=== PATIENT | female | born 1975 | race Caucasian/White ===

== ENCOUNTER 2017-03-13 00:34 | Inpatient (IN) | payer OTHER ==
[~2017-03-13] VITALS: Ht 160 cm; Wt 62.6 kg
--- NOTE | 2017-03-13 00:40 | NUR ---
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 AAOX4, AMBULATORY. VSS. NAD NOTED. NONDIAPHORETIC. GOWNED INITIATED COMFORT MEASURES. AWAITING FOR ER MD LOPEZ.
[2017-03-13] MEDS ORDERED: IV NS 0.9% 1,000 ML BAG IV ONE (02:30)
[2017-03-13] MEDS ORDERED: HYDROMORPHONE 1 MG/1 ML DISP.SYRIN ONE ×3 (02:30→05:40)
[2017-03-13] MEDS ORDERED: HYDROMORPHONE INJ 2 MG/ML DISP.SYRIN IV ONE (02:30)
[2017-03-13] MEDS ORDERED: IV SET PRIMARY 1 EA INFUS.SET MC ONE (02:30)
[2017-03-13] MEDS ORDERED: IV NS 0.9% 1,000 ML ONE (02:30)
[2017-03-13] MEDS ORDERED: ONDANSETRON HCL/PF 4 MG/2 ML VIAL IVP ONE (02:30)
[2017-03-13] MEDS ORDERED: ONDANSETRON HCL/PF 4 MG/2 ML VIAL ONE (02:30)
--- NOTE | 2017-03-13 02:30 | NUR ---
STARTED A SALINE LOCK ON THE LEFT HAND G18, BLOOD DRAWN AND SENT TO LAB.
[2017-03-13 02:45] LABS: BASOPHILS % (AUTO) 0.4 % (0.0-2.0); EOSINOPHILS # (AUTO) 0.2 /CMM (0.0-0.7); EOSINOPHILS % (AUTO) 1.6 % (0.0-6.0); HEMATOCRIT 40 % (33-45); HEMOGLOBIN 13.6 g/dL (11.5-14.8); LYMPHOCYTES # (AUTO) 2.4 /CMM (0.8-4.8); LYMPHOCYTES % (AUTO) 20.5 % (20.0-44.0); MEAN CORPUSCULAR HEMOGLOBIN 30 PG (26.0-33.0); MEAN CORPUSCULAR HGB CONC 34 g/dl (31.0-36.0); MEAN CORPUSCULAR VOLUME 89 fL (82-100); MONOCYTES # (AUTO) 0.7 /CMM (0.1-1.30); MONOCYTES % (AUTO) 5.7 % (2.0-12.0); NEUTROPHILS # (AUTO) 8.3 /CMM (1.8-8.9); NEUTROPHILS % (AUTO) 71.8 % (43.0-81.0); PLATELET COUNT (AUTO) 296 /CMM (150-450); RDW COEFFICIENT OF VARIATION 13.8 (11.5-15.0); RED BLOOD CELL COUNT(AUTO) 4.53 MIL/uL (4.0-5.2); WHITE BLOOD COUNT (AUTO) 11.5 K/uL (4.3-11.0)
[2017-03-13 02:55] LABS: INR 0.9 (0.87-1.13); PROTHROMBIN TIME 9.6 SECS (9.5-12.7)
[2017-03-13 02:59] LABS: CALCIUM, SERUM 9.2 mg/dL (8.5-10.1); CREATININE 0.7 mg/dL (0.6-1.3); POTASSIUM 3.9 mmol/L (3.5-5.1)
[2017-03-13] MEDS ORDERED: FAMOTIDINE/PF INJ 20 MG/2 ML VIAL IV ONE ×2 (03:00→03:05)
[2017-03-13 03:05] LABS: ALBUMIN 3.9 g/dL (3.4-5.0); BILIRUBIN,TOTAL 0.3 mg/dL (0.2-1.0); TOTAL PROTEIN, SERUM 7.1 g/dL (6.4-8.2)
--- NOTE | 2017-03-13 03:58 | NUR ---
CALLED [facility]. [facility].
[2017-03-13] MEDS ORDERED: HYDROMORPHONE 1 MG/1 ML DISP.SYRIN IV ONE (04:00)
--- NOTE | 2017-03-13 04:00 | NUR ---
ADMISSION ORDERS RECEIVED FROM DR. RICHARD
--- NOTE | 2017-03-13 04:19 | NUR ---
ASSIGNED M/S [facility] [phone]
--- NOTE | 2017-03-13 04:31 | NUR ---
REPORT GIVEN TO TIM MAYES FOR [facility] ADMISSION AND BESSY.
[2017-03-13] MEDS ORDERED: QUET25TA PO (04:32)
[2017-03-13] MEDS ORDERED: CITA40TA11 PO (04:32)
[2017-03-13] MEDS ORDERED: GABA600T2 PO (04:32)
--- NOTE | 2017-03-13 04:40 | NUR ---
Transported to [facility], no incident noted. vss.
[2017-03-13 05:00] VITALS: BP 106/61
[2017-03-13] MEDS ORDERED: ONDANSETRON HCL/PF 4 MG/2 ML VIAL IV PRN (05:00)
[2017-03-13] MEDS ORDERED: HYDROMORPHONE 1 MG/1 ML DISP.SYRIN IV PRN (05:00)
--- NOTE | 2017-03-13 05:00 | NUR ---
RN NOTE; ADMITTED A 41Y/O F, A, OX4. BREATHING EVENLY. NO SOB. NAD. W/ ANXIETY AND C/O SEVERE PAIN. DILAUDID HAS BEEN GIVEN AT THE ER AROUND AN HOUR AGO WHICH WAS EXPLAINED TO THE PT. VS:JOHNNIE. NEEDS ATTENDED. CALL LIGHT WITHIN REACH,. WILL CONT TO MONITOR AND WILL F/U W/ MD'S ORDERS.
[2017-03-13] MEDS ORDERED: IV PREMIX D5 NS + KCL 1,000 ML IV ONE (05:06)
[2017-03-13] MEDS ORDERED: IV SET PRIMARY PUMP SET 1 EA INFUS.SET MC ONE (05:08)
--- NOTE | 2017-03-13 05:10 | NUR ---
RN NOTE; RIGHT WRIST W/ INTACT CAST. PT ABLE TO MOVE THE HAND, ARM AND ALL FINGERS. NO NEURO OR CIRCULATORY DEFICIT NOTED. PT W/ NO C/O PAIN ON THE AREA W/ THE CAST.
[2017-03-13] MEDS: Potassium Chloride 20 MEQ in IV D5/ 0.9% NACL 1,000 ML IV PRN ×2 (05:16→16:30)
[2017-03-13] MEDS ORDERED: ACETAMINOPHEN 325 MG TABLET PO PRN (05:30)
[2017-03-13] MEDS ORDERED: ZOLPIDEM TARTRATE 5 MG TABLET PO PRN (05:30)
[2017-03-13] MEDS ORDERED: HYDROCODONE/APAP 5/325MG 1 EACH TABLET PO PRN (05:30)
--- NOTE | 2017-03-13 06:21 | NUR ---
RN NOTE; PT IN BED AWAKE AND ALERT. BREATHING EVENLY. W/ C/O SEVERE ABD PAIN,. DILAUDID GIVEN ORDERED. NEEDS ATTENDED. CALL LIGHT WITHIN REACH. WILL CONT TO MONITOR AND WILL ENDORSE TO AM SHIFT FOR BESSY.
--- NOTE | 2017-03-13 07:15 | NUR ---
ms rn initial notes Received patient in bed, awake, head of bed elevated no sob or distress noted. On room air and tolerated well. NPO due to patient diagnosis. IV intact and patent with IVF infusing well. Right hand cast per patient she broke her hand (not here during hospitalization). Will continue to monitor accordingly. Patient complaint of pain but tolerable pain at this time.
[2017-03-13 07:40] LABS: BASOPHILS # (AUTO) 0.1 /CMM (0.0-0.2); BASOPHILS % (AUTO) 0.5 % (0.0-2.0); EOSINOPHILS # (AUTO) 0.2 /CMM (0.0-0.7); EOSINOPHILS % (AUTO) 2.4 % (0.0-6.0); HEMATOCRIT 37 % (33-45); HEMOGLOBIN 12.4 g/dL (11.5-14.8); LYMPHOCYTES # (AUTO) 2.9 /CMM (0.8-4.8); LYMPHOCYTES % (AUTO) 28.8 % (20.0-44.0); MEAN CORPUSCULAR HEMOGLOBIN 30 PG (26.0-33.0); MEAN CORPUSCULAR HGB CONC 34 g/dl (31.0-36.0); MEAN CORPUSCULAR VOLUME 90 fL (82-100); MONOCYTES # (AUTO) 0.6 /CMM (0.1-1.30); MONOCYTES % (AUTO) 6.5 % (2.0-12.0); NEUTROPHILS # (AUTO) 6.2 /CMM (1.8-8.9); NEUTROPHILS % (AUTO) 61.8 % (43.0-81.0); PLATELET COUNT (AUTO) 260 /CMM (150-450); RDW COEFFICIENT OF VARIATION 14.1 (11.5-15.0); RED BLOOD CELL COUNT(AUTO) 4.09 MIL/uL (4.0-5.2)
[2017-03-13 07:54] LABS: ALBUMIN 3.3 g/dL (3.4-5.0); BILIRUBIN,TOTAL 0.3 mg/dL (0.2-1.0); CALCIUM, SERUM 8.1 mg/dL (8.5-10.1); CREATININE 0.8 mg/dL (0.6-1.3); TOTAL PROTEIN, SERUM 6.1 g/dL (6.4-8.2)
[2017-03-13 08:00] VITALS: BP 94/60
[2017-03-13] MEDS: PANTOPRAZOLE 40 MG VIAL IV SCH (08:44)
[2017-03-13] MEDS: HYDROMORPHONE 1 MG/1 ML DISP.SYRIN IV PRN ×4 (09:18→21:15)
--- NOTE | 2017-03-13 10:16 | NUR ---
ms rn notes Dr. Burroughs came seen and examined the patient and ordered to discontinue previous diet order and change it to clear liquid diet. Urine test for stat. All orders carried out and noted. Will continue to monitor accordingly.
[2017-03-13] MEDS: QUETIAPINE FUMARATE 25 MG TABLET PO SCH ×2 (11:25→17:12)
[2017-03-13] MEDS: GABAPENTIN 300 MG CAPSULE PO SCH ×2 (12:04→16:29)
[2017-03-13 16:00] VITALS: BP 99/52
--- NOTE | 2017-03-13 17:12 | NUR ---
ms rn notes Held Seroquel order due to patient refusal explained the risk and benefits x 3, and still refused to take her medication. Will continue to monitor accordingly.
--- NOTE | 2017-03-13 19:19 | NUR ---
ms rn closing notes All needs provided, attended and anticipated. kept patient clean and comfortable in bed, call light with in patient reach, endorsed to next shift RN to continue care.
--- NOTE | 2017-03-13 19:29 | NUR ---
rn note; RECEIVED PT IN BED SLEEPING, AROUSES EASILY. BREATHING EVENLY. NO SOB. NAD. SKIN WARM AND DRY, ON ONGOING IVF HYDRATION. IV SITE INTACT. NO S/S OR C/O PAIN OR DISCOMFORT. WILL CONT TO MONITOR
[2017-03-13 20:00] VITALS: BP 100/70
--- NOTE | 2017-03-13 21:15 | NUR ---
DILAUDID GIVEN FOR C/O SEVERE ABD. PAIN. WILL CONT TO MONITOR
[2017-03-14] MEDS: HYDROMORPHONE 1 MG/1 ML DISP.SYRIN IV PRN ×4 (02:19→10:52)
[2017-03-14 02:20] VITALS: BP 102/72
[2017-03-14] MEDS: Potassium Chloride 20 MEQ in IV D5/ 0.9% NACL 1,000 ML IV PRN (02:21)
--- NOTE | 2017-03-14 02:23 | NUR ---
DILAUDID GIVEN FOR C/O SEVERE ABD. PAIN. WILL CONT TO MONITOR
--- NOTE | 2017-03-14 05:28 | NUR ---
DILAUDID GIVEN FOR C/O SEVERE ABD. PAIN. WILL CONT TO MONITOR
[2017-03-14 05:31] VITALS: BP 102/67
--- NOTE | 2017-03-14 06:35 | NUR ---
rn note; PT IN BED AWAKE AND ALERT. BREATHING EVENLY. NO SOB/ NAD. PAIN MEDICATION GIVEN ORDERED PER PT'S REQUEST. EFFECTIVE. NO N/V. NO ACUTE CHANGES DURING THE NIGHT. ON ONGOING IVF HYDRATION GRANT WELL. NEEDS ATTENDED. ASSISTED W/ ADLS. CALL LIGHT WITHIN REACH. WILL CONT TO MONITOR AND WILL ENDORSE TO AM SHIFT FOR BESSY,
--- NOTE | 2017-03-14 07:24 | NUR ---
ms rn initial notes Received patient in bed, awake, head of bed elevated, no SOB or distress noted. On room air and tolerated well. Alert and oriented x 3, verbally responsive and able to make needs known. IV intact and patent with IVF infusing well. Pain is on tolerable number at this time. kept patient clean and comfortable in bed, call light with in patient reach, will continue to monitor accordingly.
[2017-03-14 07:37] LABS: BASOPHILS # (AUTO) 0.1 /CMM (0.0-0.2); BASOPHILS % (AUTO) 0.5 % (0.0-2.0); EOSINOPHILS # (AUTO) 0.3 /CMM (0.0-0.7); EOSINOPHILS % (AUTO) 3.1 % (0.0-6.0); HEMATOCRIT 35 % (33-45); HEMOGLOBIN 11.7 g/dL (11.5-14.8); LYMPHOCYTES # (AUTO) 1.9 /CMM (0.8-4.8); LYMPHOCYTES % (AUTO) 18.4 % (20.0-44.0); MEAN CORPUSCULAR HEMOGLOBIN 30 PG (26.0-33.0); MEAN CORPUSCULAR HGB CONC 34 g/dl (31.0-36.0); MEAN CORPUSCULAR VOLUME 91 fL (82-100); MONOCYTES # (AUTO) 0.6 /CMM (0.1-1.30); MONOCYTES % (AUTO) 6.3 % (2.0-12.0); NEUTROPHILS # (AUTO) 7.3 /CMM (1.8-8.9); NEUTROPHILS % (AUTO) 71.7 % (43.0-81.0); PLATELET COUNT (AUTO) 235 /CMM (150-450); RDW COEFFICIENT OF VARIATION 14.3 (11.5-15.0); RED BLOOD CELL COUNT(AUTO) 3.86 MIL/uL (4.0-5.2); WHITE BLOOD COUNT (AUTO) 10.2 K/uL (4.3-11.0)
[2017-03-14 07:53] LABS: ALBUMIN 2.8 g/dL (3.4-5.0); BILIRUBIN,TOTAL 0.3 mg/dL (0.2-1.0); CALCIUM, SERUM 7.9 mg/dL (8.5-10.1); CREATININE 0.6 mg/dL (0.6-1.3); POTASSIUM 4.3 mmol/L (3.5-5.1); TOTAL PROTEIN, SERUM 5.4 g/dL (6.4-8.2)
[2017-03-14 08:00] VITALS: BP 103/71
[2017-03-14] MEDS ORDERED: PANT40TA2 PO (08:53)
[2017-03-14] MEDS ORDERED: HYDR-552 PO (08:53)
[2017-03-14] MEDS: GABAPENTIN 300 MG CAPSULE PO SCH (08:55)
[2017-03-14] MEDS: PANTOPRAZOLE 40 MG VIAL IV SCH (08:55)
[2017-03-14] MEDS ORDERED: CITALOPRAM HYDROBROMIDE 20 MG TABLET PO SCH (09:00)
--- NOTE | 2017-03-14 11:45 | NUR ---
ms returns clerk notes Discharge instructions given to patient and able to understand instructions. Signed discharge paper and belongings list. Prescription given. Skin is intact. Pneumonia vaccine not given due to age. Flu vaccine is out of season. Patient is alert and oriented x 3, verbally responsive. Patient left via ambulatory accompanied by RADIO ENGINEER assigned to the patient. Patient left in stable condition, no pain or discomfort, nor chest pain. IV access removed and applied pressure to prevent bleeding. MD and charge nurse aware. Vital signs checked and recorded.
[2017-03-15] MEDS ORDERED: PANTOPRAZOLE 40 MG TABLET.DR PO SCH (07:30)
== END 2017-03-14 11:45 | disposition home or self-care (01) | DRG 392 ==
LOC: ER 00:39 → MED 04:26
PROVIDERS: ADMIT Internal Medicine; ATTEND Internal Medicine
DX: K29.00 Acute gastritis without bleeding (principal); F41.9 Anxiety disorder, unspecified; R78.89 Finding of other specified substances, not normally found in blood; M25.531 Pain in right wrist
CPT/HCPCS: 36415; 72128-TC; 76705-TC; 80048-TC; 80053-TC; 80061-TC; 80076-TC; 82150-TC; 83690-TC; 84703-TC; 85025-TC; 85730-TC; 87081-TC; A4606; C9113; J1170; J2405; J3480; J3490; J7030; J7042; Z7610

== ENCOUNTER 2017-03-28 22:59 | Emergency (ER) | payer OTHER ==
[~2017-03-28] VITALS: Ht 157.5 cm; Wt 59.0 kg
[~2017-03-28 22:59] MED LIST: CITA40TA11 PO; GABA600T2 PO; HYDR-552 PO; PANT40TA2 PO; QUET25TA PO
--- NOTE | 2017-03-28 23:08 | NUR ---
pt ambulatory w/ steady gait for midepigastric abd pain w/ N/V x yesterday, hx pancreatitis, denies any hematoemesis, no blood in stool, AOx4, afebrile w/ resp even & unlabored, continued nausea w/ midepigastric abd pain w/ no active vomiting at this time. Dr. Lai at bedside for further eval.
[2017-03-28] MEDS ORDERED: ONDANSETRON HCL/PF 4 MG/2 ML VIAL ONE (23:24)
--- NOTE | 2017-03-28 23:24 | NUR ---
IVHL started, labs drawn & sent. medicated as ordered.
[2017-03-28] MEDS ORDERED: MORPHINE SULFATE INJ 4 MG/ML DISP.SYRIN ONE (23:25)
[2017-03-28] MEDS ORDERED: IV NS 0.9% 1,000 ML BAG IV ONE (23:30)
[2017-03-28] MEDS ORDERED: ONDANSETRON HCL/PF 4 MG/2 ML VIAL IVP ONE (23:30)
[2017-03-28] MEDS ORDERED: MORPHINE SULFATE INJ 2 MG/ML DISP.SYRIN IV ONE (23:30)
[2017-03-28 23:31] LABS: BASOPHILS # (AUTO) 0.1 /CMM (0.0-0.2); BASOPHILS % (AUTO) 0.7 % (0.0-2.0); EOSINOPHILS # (AUTO) 0.1 /CMM (0.0-0.7); EOSINOPHILS % (AUTO) 1.4 % (0.0-6.0); HEMATOCRIT 38 % (33-45); HEMOGLOBIN 12.6 g/dL (11.5-14.8); LYMPHOCYTES # (AUTO) 2.1 /CMM (0.8-4.8); LYMPHOCYTES % (AUTO) 27.8 % (20.0-44.0); MEAN CORPUSCULAR HEMOGLOBIN 30 PG (26.0-33.0); MEAN CORPUSCULAR HGB CONC 33 g/dl (31.0-36.0); MEAN CORPUSCULAR VOLUME 90 fL (82-100); MONOCYTES # (AUTO) 0.5 /CMM (0.1-1.30); MONOCYTES % (AUTO) 7.1 % (2.0-12.0); NEUTROPHILS # (AUTO) 4.8 /CMM (1.8-8.9); PLATELET COUNT (AUTO) 285 /CMM (150-450); RDW COEFFICIENT OF VARIATION 13.4 (11.5-15.0); RED BLOOD CELL COUNT(AUTO) 4.25 MIL/uL (4.0-5.2); WHITE BLOOD COUNT (AUTO) 7.7 K/uL (4.3-11.0)
[2017-03-28 23:39] LABS: APPEARANCE,URINE SL CLOUDY (CLEAR); BILIRUBIN,URINE NEGATIVE (NEGATIVE); BLOOD, URINE 1+ Ery/uL (NEGATIVE); COLOR,URINE YELLOW (YELLOW); KETONES,URINE NEGATIVE (NEGATIVE); LEUKOCYTE ESTERASE ,URINE NEGATIVE (NEGATIVE); NITRITE, URINE NEGATIVE (NEGATIVE); PROTEIN,URINE NEGATIVE (NEGATIVE); UGLUCOSE NEGATIVE (NEGATIVE); UROBILINOGEN,URINE 0.2 EU/dL (0.2)
[2017-03-28 23:40] LABS: CALCIUM, SERUM 8.6 mg/dL (8.5-10.1); CREATININE 0.8 mg/dL (0.6-1.3); POTASSIUM 4.1 mmol/L (3.5-5.1)
[2017-03-28 23:41] LABS: PREGNANCY TEST URINE QUAL NEGATIVE (NEGATIVE)
[2017-03-28 23:43] LABS: BACTERIA,URINE None seen /HPF (None Seen); SQUAMOUS EPITHELIAL CELL,UR Few /HPF (None Seen); URINE AMORPHOUS URATE Few /HPF (None Seen); WBC,URINE 0-2 /HPF (0-3)
[2017-03-28 23:46] LABS: ALBUMIN 3.5 g/dL (3.4-5.0); BILIRUBIN,TOTAL 0.3 mg/dL (0.2-1.0); TOTAL PROTEIN, SERUM 6.5 g/dL (6.4-8.2)
--- NOTE | 2017-03-28 23:48 | NUR ---
pt sent to [place] via [facility].
--- NOTE | 2017-03-29 00:05 | NUR ---
pt back fr CT, continues to have midepigastric abd pain w/ no active N/V, requesting for pain medication. Dr. Lai notified. pt on continuous monitoring.
--- NOTE | 2017-03-29 00:52 | NUR ---
Dr. Lai at bedside for update on pt status.
--- NOTE | 2017-03-29 00:58 | NUR ---
IV removed. Catheter intact and site benign. Pressure and 4x4 applied to site. No bleeding noted.Patient discharged to home in stable condition. Written and verbal after care instructions given. Patient verbalizes understanding of instruction.
[2017-03-29 01:00] VITALS: BP 107/66
== END 2017-03-29 01:09 | disposition home or self-care (01) ==
LOC: ER 22:59
DX: R10.12 Left upper quadrant pain (principal); R10.11 Right upper quadrant pain
CPT/HCPCS: 36415; 72128; 74176; 80048; 80076; 81001; 83690; 84703; 85025; 96361; 96374; 96375; 99285; A4606 ×2; J2270; J2405; J7030; Z7610 ×2; 81000-TC

== ENCOUNTER 2017-07-02 21:24 | Emergency (ER) | payer MEDICAID, OTHER ==
[~2017-07-02] VITALS: Ht 154.9 cm; Wt 56.7 kg
--- NOTE | 2017-07-02 22:00 | NUR ---
PT BIB SELF, AMBULATORY TO ER BED 4. PT C/O MID ABD PAIN X 2 DAYS, STATES ITS A SHARP PAIN. PT PLACED IN GOWN. AWAITING MD LOPEZ. VSS/RESP EVEN AND UNLABORED/NAD NOTED/PT C/O MILD NAUSEA, DENIES V/D. SKIN WARM AND DRY.
[2017-07-02] MEDS ORDERED: ONDANSETRON HCL/PF 4 MG/2 ML VIAL IVP ONE (23:30)
[2017-07-02] MEDS ORDERED: FAMOTIDINE/PF INJ 20 MG/2 ML VIAL IV ONE ×2 (23:30→23:32)
[2017-07-02] MEDS ORDERED: MORPHINE SULFATE INJ 2 MG/ML DISP.SYRIN IV ONE (23:30)
--- NOTE | 2017-07-02 23:30 | NUR ---
18G IV TO LAC USING ASEPTIC TECH, FLUSHES EASILY. BLOOD SAMPLE HANDED OVER TO LAB AT BEDSIDE. PT TOLERATED PROCEDURE WELL.
[2017-07-02] MEDS ORDERED: ONDANSETRON HCL/PF 4 MG/2 ML VIAL ONE (23:31)
[2017-07-02] MEDS ORDERED: MORPHINE SULFATE INJ 10 MG/ML DISP.SYRIN ONE (23:31)
[2017-07-02 23:34] LABS: BASOPHILS # (AUTO) 0.1 /CMM (0.0-0.2); BASOPHILS % (AUTO) 0.6 % (0.0-2.0); EOSINOPHILS # (AUTO) 0.3 /CMM (0.0-0.7); EOSINOPHILS % (AUTO) 3.3 % (0.0-6.0); HEMATOCRIT 39 % (33-45); HEMOGLOBIN 12.9 g/dL (11.5-14.8); LYMPHOCYTES # (AUTO) 1.6 /CMM (0.8-4.8); LYMPHOCYTES % (AUTO) 16.2 % (20.0-44.0); MEAN CORPUSCULAR HEMOGLOBIN 29 PG (26.0-33.0); MEAN CORPUSCULAR HGB CONC 33 g/dl (31.0-36.0); MEAN CORPUSCULAR VOLUME 88 fL (82-100); MONOCYTES # (AUTO) 0.7 /CMM (0.1-1.30); MONOCYTES % (AUTO) 7.2 % (2.0-12.0); NEUTROPHILS # (AUTO) 7.1 /CMM (1.8-8.9); NEUTROPHILS % (AUTO) 72.7 % (43.0-81.0); PLATELET COUNT (AUTO) 242 /CMM (150-450); RDW COEFFICIENT OF VARIATION 13.4 (11.5-15.0); RED BLOOD CELL COUNT(AUTO) 4.46 MIL/uL (4.0-5.2); WHITE BLOOD COUNT (AUTO) 9.8 K/uL (4.3-11.0)
[2017-07-02 23:39] LABS: APPEARANCE,URINE SL CLOUDY (CLEAR); BILIRUBIN,URINE NEGATIVE (NEGATIVE); BLOOD, URINE 1+ Ery/uL (NEGATIVE); COLOR,URINE YELLOW (YELLOW); KETONES,URINE NEGATIVE (NEGATIVE); LEUKOCYTE ESTERASE ,URINE NEGATIVE (NEGATIVE); NITRITE, URINE NEGATIVE (NEGATIVE); PH,URINE 5.5 (5.0-8.0); PROTEIN,URINE NEGATIVE (NEGATIVE); UGLUCOSE NEGATIVE (NEGATIVE); UROBILINOGEN,URINE 0.2 EU/dL (0.2)
[2017-07-02 23:44] LABS: BACTERIA,URINE Few /HPF (None Seen); SQUAMOUS EPITHELIAL CELL,UR Moderate /HPF (None Seen)
[2017-07-02 23:48] LABS: INR 0.87 (0.87-1.13)
[2017-07-02 23:50] LABS: CALCIUM, SERUM 8.9 mg/dL (8.5-10.1); CARBON DIOXIDE 31 mmol/L (21-32); CHLORIDE 107 mmol/L (98-107); CREATININE 0.7 mg/dL (0.6-1.3); GLUCOSE 83 mg/dL (74-106); POTASSIUM 4.4 mmol/L (3.5-5.1); SODIUM SERUM 140 mmol/L (136-145); UREA NITROGEN, BLOOD 14 mg/dL (7-18)
[2017-07-02 23:53] LABS: TROPONIN I < 0.017 ng/mL (0.00-0.056)
[2017-07-02 23:56] LABS: ALANINE AMINOTRANSFERASE 27 U/L (12-78); ALBUMIN 3.5 g/dL (3.4-5.0); ALKALINE PHOSPHATASE 56 U/L (46-116); ASPARTATE AMINOTRANSFERASE 14 U/L (15-37); BILIRUBIN,TOTAL 0.2 mg/dL (0.2-1.0); LIPASE 229 U/L (73-393); TOTAL PROTEIN, SERUM 6.6 g/dL (6.4-8.2)
[2017-07-03] MEDS ORDERED: LIDOCAINE VISCOUS 2% UD 15 ML UDC ONE (00:21)
[2017-07-03] MEDS ORDERED: MAG HYDROX/AL HYDROX/SIMETH 30 ML UDC ONE (00:22)
--- NOTE | 2017-07-03 00:25 | NUR ---
MEDICATED PER MD ORDERS.
[2017-07-03] MEDS ORDERED: MAG HYDROX/AL HYDROX/SIMETH 30 ML UDC PO ONE (00:30)
[2017-07-03] MEDS ORDERED: LIDOCAINE VISCOUS 2% UD 15 ML UDC MM ONE (00:30)
--- NOTE | 2017-07-03 00:39 | NUR ---
IV removed. Catheter intact and site benign. Pressure and 4x4 applied to site. No bleeding noted. Patient discharged to home in stable condition. Written and verbal after care instructions given. Patient verbalizes understanding of instruction, pt instructed not to drive. Pt ambulatory with a steady gait.
[2017-07-03 00:41] VITALS: BP 117/71
== END 2017-07-03 00:43 | disposition home or self-care (01) ==
LOC: ER 21:26
DX: I88.9 Nonspecific lymphadenitis, unspecified (principal); Z88.2 Allergy status to sulfonamides; Z88.8 Allergy status to other drugs, medicaments and biological substances
CPT/HCPCS: 36415; 74176; 80048; 80076; 81001; 83690; 84484; 84703; 85025; 85730; 93005; 96374; 96375; 99285; A4606; J2270; J2405; J3490; Z7610; 81000-TC

== ENCOUNTER 2018-01-16 12:44 | Emergency (ER) | payer MEDICAID, OTHER ==
[~2018-01-16] VITALS: Ht 157.5 cm; Wt 63.5 kg
[2018-01-16 12:50] VITALS: BP 113/80
[2018-01-16] MEDS ORDERED: KETOROLAC TROMETHAMINE 15 MG/ML VIAL ONE (13:00)
[2018-01-16] MEDS: KETOROLAC TROMETHAMINE INJ 60 MG/2 ML VIAL IM ONE (13:05)
== END 2018-01-16 13:46 | disposition home or self-care (01) ==
LOC: ER 12:45
DX: S63.501A Unspecified sprain of right wrist, initial encounter (principal); K85.90 Acute pancreatitis without necrosis or infection, unspecified; Z88.2 Allergy status to sulfonamides; Z88.8 Allergy status to other drugs, medicaments and biological substances; W01.0XXA Fall on same level from slipping, tripping and stumbling without subsequent striking against object, initial encounter; Y93.K1 Activity, walking an animal; Y92.89 Other specified places as the place of occurrence of the external cause; Y99.8 Other external cause status
CPT/HCPCS: 73110; A4606; J1885; Z7610

== ENCOUNTER 2018-03-02 18:10 | Inpatient (IN) | payer MEDICAID ==
[~2018-03-02] VITALS: Ht 157.5 cm; Wt 79.4 kg
--- NOTE | 2018-03-02 18:12 | NUR ---
PT A/OX4 C/C SEVERE ABD PAIN, STATINGE SHE ACCIDENTALLY SWALLOWED 2 SMALL MAGNETS ON 02/21/18. HEMOPTYSIS X 1 WOUND CARE NURSE. NEG ACUTE DISTRESS. VSS. STABLE CONDITION. NEG SOB. SAFETY MEASURES IN PLACE. AWAITING MD LOPEZ.
[2018-03-02] MEDS ORDERED: MORPHINE SULFATE INJ 2 MG/ML DISP.SYRIN IV ONE ×2 (18:30→20:30)
[2018-03-02] MEDS ORDERED: IV NS 0.9% 1,000 ML BAG IV ONE (18:30)
[2018-03-02] MEDS ORDERED: ONDANSETRON HCL/PF 4 MG/2 ML VIAL IVP ONE (18:30)
[2018-03-02 18:42] LABS: BASOPHILS % (AUTO) 0.4 % (0.0-2.0); EOSINOPHILS % (AUTO) 1.6 % (0.0-6.0); HEMATOCRIT 35 % (33-45); HEMOGLOBIN 11.8 g/dL (11.5-14.8); LYMPHOCYTES # (AUTO) 1.1 /CMM (0.8-4.8); LYMPHOCYTES % (AUTO) 11.4 % (20.0-44.0); MEAN CORPUSCULAR HEMOGLOBIN 30 PG (26.0-33.0); MEAN CORPUSCULAR HGB CONC 34 g/dl (31.0-36.0); MEAN CORPUSCULAR VOLUME 90 fL (82-100); MONOCYTES # (AUTO) 0.6 /CMM (0.1-1.30); MONOCYTES % (AUTO) 6.6 % (2.0-12.0); NEUTROPHILS # (AUTO) 7.5 /CMM (1.8-8.9); PLATELET COUNT (AUTO) 262 /CMM (150-450); RDW COEFFICIENT OF VARIATION 14.1 (11.5-15.0); RED BLOOD CELL COUNT(AUTO) 3.88 MIL/uL (4.0-5.2); WHITE BLOOD COUNT (AUTO) 9.4 K/uL (4.3-11.0)
[2018-03-02] MEDS ORDERED: ONDANSETRON HCL/PF 4 MG/2 ML VIAL ONE (18:54)
[2018-03-02] MEDS ORDERED: MORPHINE SULFATE INJ 4 MG/ML DISP.SYRIN ONE ×2 (18:55→20:36)
[2018-03-02 18:57] LABS: CALCIUM, SERUM 8.9 mg/dL (8.5-10.1); CARBON DIOXIDE 28 mmol/L (21-32); CHLORIDE 105 mmol/L (98-107); CREATININE 0.9 mg/dL (0.6-1.3); GLUCOSE 109 mg/dL (74-106); POTASSIUM 3.7 mmol/L (3.5-5.1); SODIUM SERUM 140 mmol/L (136-145); UREA NITROGEN, BLOOD 5 mg/dL (7-18)
[2018-03-02 19:03] LABS: TROPONIN I < 0.017 ng/mL (0.00-0.056)
[2018-03-02 19:07] LABS: ALANINE AMINOTRANSFERASE 29 U/L (12-78); ALBUMIN 3.4 g/dL (3.4-5.0); ALKALINE PHOSPHATASE 63 U/L (46-116); ASPARTATE AMINOTRANSFERASE 14 U/L (15-37); BILIRUBIN,DIRECT 0.1 mg/dL (0.0-0.2); BILIRUBIN,TOTAL 0.4 mg/dL (0.2-1.0); LIPASE 103 U/L (73-393); TOTAL PROTEIN, SERUM 6.8 g/dL (6.4-8.2)
[2018-03-02 19:12] LABS: INR 0.88 (0.85-1.15)
--- NOTE | 2018-03-02 20:13 | NUR ---
CALLED LANI SCHWARTZ, ON THE PHONE WITH DR BONNER.
--- NOTE | 2018-03-02 20:20 | NUR ---
CALLED DR RICHARD ON THE PHONE WITH DR BONNER.
[2018-03-02 20:30] LABS: APPEARANCE,URINE SL CLOUDY (CLEAR); BILIRUBIN,URINE NEGATIVE (NEGATIVE); BLOOD, URINE NEGATIVE Ery/uL (NEGATIVE); COLOR,URINE YELLOW (YELLOW); KETONES,URINE NEGATIVE (NEGATIVE); LEUKOCYTE ESTERASE ,URINE NEGATIVE (NEGATIVE); NITRITE, URINE NEGATIVE (NEGATIVE); PH,URINE 6.5 (5.0-8.0); PROTEIN,URINE NEGATIVE (NEGATIVE); UGLUCOSE NEGATIVE (NEGATIVE); UROBILINOGEN,URINE 0.2 EU/dL (0.2)
[2018-03-02] MEDS ORDERED: PEG 3350/NA SULF,BICARB,CL/KCL 4,000 ML BOTTLE PO ONE (20:30)
--- NOTE | 2018-03-02 21:02 | NUR ---
MATEO PINEDA ADMIN X1. REMAINING DOSE ENDORSED TO SUGEY MARINO RN. OK BY .
--- NOTE | 2018-03-02 21:25 | NUR ---
NICKO ARRIVED ON FLOOR FROM ER CC OF ABD PAIN FROM ACCIDENTALLY SWALLOWING 2 BATTERIES. PLACED TO BED COMFORTABLY, V/S STABLE, NO SOB. STATED HAD MORPHINE IN ER WITH LITTLE RELIEF. REQUESTING TO HAVE PAIN MED CHANGED. ORIENTED TO ROOM FACILITIES, UNDERSTANDS PLAN OF CARE AND MEDICATION REGIMEN. STATED FELL WEEKS AGO TRIPPED FROM HER DOG LEASH, NO OPEN WOUND, HEALING BRUISE ON LEFT ARM. PROVIDED BSC, PATIENT CAME WITH GOLYTELY FROM ER. PATIENT INSTRUCTED TO DRINK MUCH SHE CAN TOLERATE, EXPLAINED PURPOSE OF TAKING GOLYTELY, APPEARS TO UNDERSTAND. INSTRUCTED TO CALL STAFF EVERYTIME SHE USE COMMODE. VERY PLEASANT, GETTING ANXIOUS AT TIMES. TO CONTINUE
[2018-03-02 21:30] VITALS: BP 115/73
[2018-03-02] MEDS ORDERED: HYDROMORPHONE 1 MG/1 ML DISP.SYRIN IV PRN (22:30)
[2018-03-02] MEDS ORDERED: ONDANSETRON HCL/PF 4 MG/2 ML VIAL IV PRN (22:30)
[2018-03-02 22:47] VITALS: BP 115/73
[2018-03-02] MEDS: PANTOPRAZOLE 40 MG VIAL IV SCH (23:10)
[2018-03-02] MEDS ORDERED: IV PREMIX NS +20MEQ KCL 1 L IV ONE (23:30)
--- NOTE | 2018-03-02 23:30 | NUR ---
MSRN STARTED ON IVF WITH KCL AT 100CC/HR VIA RIGHT AC INFUSING WELL.KEPT NPO EXCEPT MEDS. TELEPHONE ORDRS OBTAINED AT [address] RICHARD CARRIED OUT. AABD PAIN ON/OFF. HAD LOOSE BM WITH SOME STOOL PARTICLES, NO BATTERIES SEEN. PATIENT INSTRUCTED TO CALL STAFF FOR ANY ASSISTANCE/ FURTHER DISCOMFORTS CALL LIGHT WITHIN REACH. SAFETY PRECAUTIONS EMPHASIZED, WELL UNDERSTOOD.
[2018-03-03] MEDS ORDERED: Potassium Chloride 20 MEQ in IV NS 0.9% 1,000 ML IV ONE ×2
--- NOTE | 2018-03-03 | NUR ---
MSRN NS WITH 20MEQ KCL X 1L ADMINISTERED AT 100CC/HR. D5NS WITH 20 MEQ KCL NOT AVAILABLE AT [facility] PER BUYER PLANNER. WILL FOLLOW UP IN AM.
[2018-03-03] MEDS: Potassium Chloride 20 MEQ in IV D5/ 0.9% NACL 1,000 ML IV PRN ×3 (00:01→20:43)
[2018-03-03] MEDS: HYDROMORPHONE INJ 2 MG/ML DISP.SYRIN IV PRN ×4 (01:12→13:13)
--- NOTE | 2018-03-03 01:17 | NUR ---
MSRN VERBALIZES WORSENING ABD PAIN DILAUDED 1MG IVP ADMNISTERED ORDERED. BEDREST INSTRUCTED.
--- NOTE | 2018-03-03 04:45 | NUR ---
MSRN AWAKENED WITH SHARP BURNING ABD PAIN, DIL 1MG IVP ADMINISTERED. WANTED COFFEE, REMINDED NOT ALLOWED TO HAVE ANYTHING BY MOUTH EXCEPT MEDS. ENCOURAGED TO DRINK MORE GOLETLY , AGREES. NO N/V.
[2018-03-03 06:22] LABS: BASOPHILS % (AUTO) 0.6 % (0.0-2.0); EOSINOPHILS % (AUTO) 4.2 % (0.0-6.0); HEMATOCRIT 32 % (33-45); HEMOGLOBIN 10.4 g/dL (11.5-14.8); LYMPHOCYTES # (AUTO) 1.6 /CMM (0.8-4.8); LYMPHOCYTES % (AUTO) 26.2 % (20.0-44.0); MEAN CORPUSCULAR HEMOGLOBIN 30 PG (26.0-33.0); MEAN CORPUSCULAR HGB CONC 33 g/dl (31.0-36.0); MEAN CORPUSCULAR VOLUME 93 fL (82-100); MONOCYTES # (AUTO) 0.6 /CMM (0.1-1.30); MONOCYTES % (AUTO) 8.9 % (2.0-12.0); NEUTROPHILS # (AUTO) 3.8 /CMM (1.8-8.9); NEUTROPHILS % (AUTO) 60.1 % (43.0-81.0); PLATELET COUNT (AUTO) 224 /CMM (150-450); RDW COEFFICIENT OF VARIATION 14.8 (11.5-15.0); RED BLOOD CELL COUNT(AUTO) 3.43 MIL/uL (4.0-5.2); WHITE BLOOD COUNT (AUTO) 6.3 K/uL (4.3-11.0)
[2018-03-03 06:26] LABS: CALCIUM, SERUM 8.1 mg/dL (8.5-10.1); CREATININE 0.8 mg/dL (0.6-1.3); POTASSIUM 4.3 mmol/L (3.5-5.1)
--- NOTE | 2018-03-03 06:42 | NUR ---
MSRN ASLEEP, APPEARS COMFORTABLE
[2018-03-03 08:00] VITALS: BP 109/70
[2018-03-03] MEDS ORDERED: PANT40TA2 PO (08:06)
[2018-03-03] MEDS: GABAPENTIN 300 MG CAPSULE PO SCH ×3 (08:29→18:00)
[2018-03-03] MEDS: CITALOPRAM HYDROBROMIDE 20 MG TABLET PO SCH (08:29)
--- NOTE | 2018-03-03 12:40 | NUR ---
MS RN NOTES Seen and evaluated by Dr Burroughs with new orders made. Noted and carried out.
--- NOTE | 2018-03-03 14:57 | NUR ---
MS RN NOTES SEEN AND EVALUATED BY DR REYNA WITH NEW ORDERS FOR KUB IN AM 03/04/18, CONTINUE FULL LIQUID DIET, FOR SURGERY CONSULT. NOTED AND CARRIED OUT.
[2018-03-03 16:00] VITALS: BP 100/68
--- NOTE | 2018-03-03 19:00 | NUR ---
RN CLOSING NOTES PATIENT IN BED, ALERT AND ORIENTED X 4, NO ACUTE DISTRESS NOTED. BREATHING UNLABORED. NO SOB NOTED, IV ACCESS INTACT AND PATENT. NEEDS ATTENDED AND ANTICIPATED. DUE MEDICATIONS GIVEN NO ASE NOTED. CALL LIGHT PLACED WITHIN REACH.SAFETY MEASURES IN PLACE. BED PLACED IN LOW POSITION AND LOCKED IN PLACE. ENDORSED TO NIGHT NURSE FOR CONTINUITY OF CARE.
[2018-03-03] MEDS: ACETAMINOPHEN 325 MG TABLET PO PRN (19:10)
--- NOTE | 2018-03-03 19:30 | NUR ---
MS BARRETT INITIAL NOTES RECEIVED REPORT FROM AM NURSE WHILE CHECKING THE PATIENT. SHE'S RESTING AT THIS TIME WITH EYES CLOSED. RESPIRATION EVEN AND NON-LABORED, NOT IN ANY ACUTE DISCOMFORT. IVF OF [id number] 20MEQ KCL INFUSING AT THIS TIME AT 100 ML/HR. KEPT HER WARM AND COMFORTABLE AT ALL TIMES. PLACE CALL LIGHT AT REACH.
[2018-03-03 20:00] VITALS: BP 98/68
[2018-03-03] MEDS: PANTOPRAZOLE 40 MG VIAL IV SCH (22:56)
[2018-03-03] MEDS: QUETIAPINE FUMARATE 25 MG TABLET PO SCH (22:56)
--- NOTE | 2018-03-04 | NUR ---
MS BARRETT NOTES PT SLEEPING COMFORTABLY IN BED WITHOUT ANY DISCOMFORT. KEPT HER WARM AND COMFORTABLE AT ALL TIMES. PLACE CALL LIGHT AT REACH. WILL CONTINUE TO MONITOR. IVF STILL INFUSING.
--- NOTE | 2018-03-04 07:00 | NUR ---
RN OPENING NOTES PATIENT IN BED EYES CLOSED, AROUSABLE, ALERT ORIENTED X4. HOB ELEVATED. NO ACUTE DISTRESS NOTED. BREATHING UNLABORED. NO SOB NOTED. IV ACCESS INTACT AND PATENT. CALL LIGHT PLACED WITHIN REACH.SAFETY MEASURES IN PLACE. BED PLACED IN LOW POSITION AND LOCKED IN PLACE. WILL CONTINUE TO MONITOR ACCORDINGLY.
--- NOTE | 2018-03-04 07:30 | NUR ---
MS CADDIE SUPERVISOR CLOSING NOTES PT RESTING COMFORTABLY IN BED WITHOUT ANY ACUTE DISTRESS NOTED. IVF STILL INFUSING. STABLE NAHED THE NIGHT AND SLEPT WELL. NO SIGNS OF ANY DISCOMFORT NAHED THE NIGHT. KEPT HER WARM AND COMFORTABLE AT ALL TIMES. REFUSED TO HAVE HER BEDDING CHANGED PER INTERNET MARKETING ASSISTANT . ENDORSE TO AM NURSE FOR CONTINUITY OF CARE.
[2018-03-04 08:00] VITALS: BP 113/70
[2018-03-04] MEDS: ACETAMINOPHEN 325 MG TABLET PO PRN (08:27)
[2018-03-04] MEDS: CITALOPRAM HYDROBROMIDE 20 MG TABLET PO SCH (08:29)
[2018-03-04] MEDS: GABAPENTIN 300 MG CAPSULE PO SCH ×3 (08:29→17:21)
[2018-03-04] MEDS ORDERED: PEG 3350/NA SULF,BICARB,CL/KCL 4,000 ML BOTTLE PO ONE (11:00)
--- NOTE | 2018-03-04 14:00 | NUR ---
MS RN NOTES SEEN AND EVALUATED BY DR RICHARD WITH NEW ORDERS MADE, CLARIFIED IVF ORDER, WITH ORDER TO DC. NOTED AND CARRIED OUT.
--- NOTE | 2018-03-04 14:22 | NUR ---
MS RN NOTES SEEN AND EVALUATED BY KENAN GOMEZ WITH NEW ORDERS MADE. NOTED AND CARRIED OUT.
[2018-03-04 16:00] VITALS: BP 108/67
[2018-03-04] MEDS ORDERED: QUETIAPINE FUMARATE 25 MG TABLET PO PRN (18:00)
--- NOTE | 2018-03-04 19:00 | NUR ---
RN CLOSING NOTES PATIENT IN BED ALERT ORIENTED X4. HOB ELEVATED. NO ACUTE DISTRESS NOTED. BREATHING UNLABORED. NO SOB NOTED. IV ACCESS INTACT AND PATENT. DUE MEDICATIONS GIVEN, NO ASE NOTED. NEEDS ATTENDED AND ANTICIPATED. CALL LIGHT PLACED WITHIN REACH.SAFETY MEASURES IN PLACE. BED PLACED IN LOW POSITION AND LOCKED IN PLACE. ENDORSED TO NIGHT NURSE FOR CONTINUITY OF CARE.
--- NOTE | 2018-03-04 19:30 | NUR ---
MS RN OPENING NOTES RECEIVED PATIENT IN BED, ALERT ORIENTED X 4. HOB ELEVATED. NO ACUTE DISTRESS NOTED. BREATHING UNLABORED. NO SOB NOTED. NO C/O PAIN VEBALIZED @ THIS TIME. IV ACCESS INTACT AND PATENT TO RAC. CALL LIGHT PLACED WITHIN REACH. SAFETY MEASURES IN PLACE. BED PLACED IN LOW POSITION AND LOCKED IN PLACE. WILL CONTINUE TO MONITOR ACCORDINGLY.
[2018-03-04 20:00] VITALS: BP 154/72
[2018-03-04] MEDS: QUETIAPINE FUMARATE 25 MG TABLET PO SCH (21:04)
[2018-03-04] MEDS: PANTOPRAZOLE 40 MG VIAL IV SCH (21:56)
--- NOTE | 2018-03-05 00:45 | NUR ---
MS RN NOTE PT HAD C/O ITCHINESS TO CHEST AREA ONLY, LOTION APPLIED & WAS EFFECTIVE. PT WENT TO SLEEP COMFORTABLY AFTER THAT. MONITORING CLOSELY.
[2018-03-05 07:18] LABS: BASOPHILS % (AUTO) 0.7 % (0.0-2.0); EOSINOPHILS % (AUTO) 4.2 % (0.0-6.0); HEMATOCRIT 35 % (33-45); HEMOGLOBIN 12.1 g/dL (11.5-14.8); LYMPHOCYTES # (AUTO) 1.5 /CMM (0.8-4.8); LYMPHOCYTES % (AUTO) 26.4 % (20.0-44.0); MEAN CORPUSCULAR HEMOGLOBIN 31 PG (26.0-33.0); MEAN CORPUSCULAR HGB CONC 34 g/dl (31.0-36.0); MEAN CORPUSCULAR VOLUME 90 fL (82-100); MONOCYTES # (AUTO) 0.5 /CMM (0.1-1.30); MONOCYTES % (AUTO) 8.5 % (2.0-12.0); NEUTROPHILS # (AUTO) 3.6 /CMM (1.8-8.9); NEUTROPHILS % (AUTO) 60.2 % (43.0-81.0); PLATELET COUNT (AUTO) 250 /CMM (150-450); RDW COEFFICIENT OF VARIATION 13.9 (11.5-15.0); RED BLOOD CELL COUNT(AUTO) 3.93 MIL/uL (4.0-5.2); WHITE BLOOD COUNT (AUTO) 5.8 K/uL (4.3-11.0)
--- NOTE | 2018-03-05 07:24 | NUR ---
MS RN CLOSING NOTES PATIENT SLEPT INTERMITTENTLY @ NIGHT, NOW IN BED ALERT ORIENTED X 4. HOB ELEVATED. NO ACUTE DISTRESS NOTED. BREATHING UNLABORED. NO SOB NOTED. IV ACCESS INTACT AND PATENT. DUE MEDICATIONS GIVEN, NO ASE NOTED. NEEDS ATTENDED AND ANTICIPATED. NPO FOR SCHEDULED COLONOSCOPY @ 1130AM. CONSENT SIGNED. CALL LIGHT PLACED WITHIN REACH. SAFETY MEASURES IN PLACE. BED PLACED IN LOW POSITION AND LOCKED IN PLACE. ENDORSED TO NIGHT NURSE FOR CONTINUITY OF CARE.
[2018-03-05 07:31] LABS: CALCIUM, SERUM 8.9 mg/dL (8.5-10.1); CREATININE 0.8 mg/dL (0.6-1.3); POTASSIUM 3.6 mmol/L (3.5-5.1)
[2018-03-05 08:00] VITALS: BP 122/73
--- NOTE | 2018-03-05 08:00 | NUR ---
RN NOTES RECEIVED PATIENT IN THE ROOM , A/O X4, NO ACUTE RESPIRATORY DISTRESS, PATIENT NPO GOING TO HAVE A COLONOSCOPY TODAY. SCHEDULED MEDICATION ADMINISTERED. PATIENT COMPLAINING OF PAIN 5/10 IN ABDOMEN BUT REFUSED PAIN MEDICATION. CALL LIGHT WITHIN TO REACH. CONTINUED MONITORING.
[2018-03-05] MEDS: GABAPENTIN 300 MG CAPSULE PO SCH ×3 (09:21→17:28)
[2018-03-05] MEDS: CITALOPRAM HYDROBROMIDE 20 MG TABLET PO SCH (09:22)
--- NOTE | 2018-03-05 10:30 | NUR ---
RN NOTES SEE PATIENT BY DR BURCH. WROTE PRESCRIPTION. PATIENT WILL FOLLOW PRIMARY PSYCHIATRIST AFTER DISCHARGE HOME AND TAKE MEDICATION PRESCRIBED.
--- NOTE | 2018-03-05 13:21 | NUR ---
RN NOTES PATIENT LEARNING AND DEVELOPMENT MANAGER FOR COLONOSCOPE AT THIS TIME. V/S STABLE.
--- NOTE | 2018-03-05 14:15 | NUR ---
RN NOTES PATIENT BACK FROM PROCEDURE. A/O X4, NO ACUTE RESPIRATORY DISTRESS, NO COMPLAINING OF PAIN AT THIS TIME, PATIENT DENIED NAUSEA AND VOMITING. CALL LIGHT WITHIN TO REACH CONTINUED MONITORING.
--- NOTE | 2018-03-05 15:00 | NUR ---
RN NOTES PATIENT ON ADVANCE DIET. PATIENT GAG REFLEX RETURNED GIVEN CLEAR LIQUID TOLERATED PATIENT TOLERATED WELL.
[2018-03-05 16:00] VITALS: BP 116/80
--- NOTE | 2018-03-05 18:00 | NUR ---
RN NOTES CALLED DR RICHARD AND CONFIRM DISCHARGE ORDER. PATIENT WILL DISCHARGE HOME.
--- NOTE | 2018-03-05 19:45 | NUR ---
RN NOTES PATIENT LEFT UNIT WITHOUT REMOVAL OF HEP LOCK, AND WITHOUT PAPERWORK. CHARGE NURSE NOTIFIED [employer], ALSO NOTIFIED CORRECTIONAL SUBSTANCE ABUSE COUNSELOR . ALSO TOLD [facility] WHEN THEY'RE CALLED ABOUT VERIFICATION OF DISCHARGE. CALLED PATIENT X2 PHONE # [phone] AND LEFT MASSAGE. CALLED PATIENT'S BOY FRIEND BUT PHONE IS NOT AVAILABLE.
== END 2018-03-05 19:50 | disposition home or self-care (01) | DRG 254 ==
LOC: ER 18:11 → TELE 21:51 → MED 03-03 01:59
PROVIDERS: ADMIT Internal Medicine; ATTEND Internal Medicine
PROC: 0DCL8ZZ Extirpation of Matter from Transverse Colon, Via Natural or Artificial Opening Endoscopic (ICD-10-PCS; principal; 2018-03-05 14:55)
DX: T18.4XXA Foreign body in colon, initial encounter (principal); F33.2 Major depressive disorder, recurrent severe without psychotic features; E66.9 Obesity, unspecified; F41.9 Anxiety disorder, unspecified; Z88.2 Allergy status to sulfonamides; X58.XXXA Exposure to other specified factors, initial encounter; Y92.89 Other specified places as the place of occurrence of the external cause; Z68.32 Body mass index [BMI] 32.0-32.9, adult; F19.90 Other psychoactive substance use, unspecified, uncomplicated
CPT/HCPCS: 36415; 74018; 80048-TC; 80076-TC; 81000-TC; 83690-TC; 84484-TC; 84703-TC; 85025-TC; 85730-TC; 87081-TC; A4606; C9113; J1170; J2270; J2405; J3480; J3490; J7030; J7042; Z7610

== ENCOUNTER 2021-09-10 01:10 | Emergency (ER) | payer MEDICAID ==
[~2021-09-10] VITALS: Ht 157.5 cm; Wt 77.1 kg
[~2021-09-10 01:10] MED LIST changes: +GABA600T12 PO; -GABA600T2 PO; -HYDR-552 PO
--- NOTE | 2021-09-10 01:35 | NUR ---
BIBSELF C/O BLOOD IN URINE AND RIGHT FLANK PAIN THAT STARTED AT 9PM. PATIENT ALERT AND ORIENTED X3. AMBULATORY WITH NON LABORED BREATHING. PLACED IN BED 10 ON MONITOR AND POX.
[2021-09-10] MEDS ORDERED: IV NS 0.9% 1,000 ML BAG IV ONE (02:00)
[2021-09-10] MEDS ORDERED: MORPHINE SULFATE INJ 2 MG/ML DISP.SYRIN IV ONE ×2 (02:00→06:00)
[2021-09-10] MEDS ORDERED: MORPHINE SULFATE INJ 4 MG/ML DISP.SYRIN ONE (02:03)
--- NOTE | 2021-09-10 02:07 | NUR ---
PHLEBOTMOIST AT PT'S BEDSIDE
--- NOTE | 2021-09-10 02:08 | NUR ---
BLOOD COLLECTED AND SENT TO LAB
[2021-09-10 02:43] LABS: BASOPHILS # (AUTO) 0.1 K/uL (0.0-0.2); BASOPHILS % (AUTO) 1.1 % (0.0-2.0); EOSINOPHILS % (AUTO) 2.6 % (0.0-6.0); HEMATOCRIT 37 % (33-45); HEMOGLOBIN 12.1 g/dL (11.5-14.8); LYMPHOCYTES # (AUTO) 1.9 K/uL (0.8-4.8); LYMPHOCYTES % (AUTO) 24.2 % (20.0-44.0); MEAN CORPUSCULAR HGB CONC 33 g/dl (31.0-36.0); MEAN CORPUSCULAR VOLUME 90 fL (82-100); MONOCYTES # (AUTO) 0.6 K/uL (0.1-1.30); MONOCYTES % (AUTO) 7.7 % (2.0-12.0); NEUTROPHILS # (AUTO) 5.2 K/uL (1.8-8.9); NEUTROPHILS % (AUTO) 64.4 % (43.0-81.0); PLATELET COUNT (AUTO) 305 K/uL (150-450); RED BLOOD CELL COUNT(AUTO) 4.11 MIL/uL (4.0-5.2)
[2021-09-10 02:48] LABS: BILIRUBIN,URINE NEGATIVE (NEGATIVE); COLOR,URINE YELLOW (YELLOW); LEUKOCYTE ESTERASE ,URINE NEGATIVE (NEGATIVE); NITRITE, URINE NEGATIVE (NEGATIVE); PH,URINE 5.5 (5.0-8.0); PROTEIN,URINE NEGATIVE (NEGATIVE); UGLUCOSE NEGATIVE (NEGATIVE); UROBILINOGEN,URINE 0.2 EU/dL (0.2)
[2021-09-10 03:18] LABS: ALBUMIN 3.4 g/dL (3.4-5.0); BILIRUBIN,DIRECT 0.1 mg/dL (0.0-0.2); BILIRUBIN,TOTAL 0.2 mg/dL (0.2-1.0); CREATININE 0.8 mg/dL (0.6-1.3); POTASSIUM 4.2 mmol/L (3.5-5.1); TOTAL PROTEIN, SERUM 6.7 g/dL (6.4-8.2)
[2021-09-10] MEDS ORDERED: MORPHINE SULFATE INJ 2 MG/ML DISP.SYRIN ONE (06:00)
[2021-09-10] MEDS ORDERED: CEFD300C3 PO (07:00)
[2021-09-10] MEDS ORDERED: IBUP-1955 PO (07:00)
[2021-09-10] MEDS ORDERED: HYDR-4303 PO (07:00)
[2021-09-10 07:08] VITALS: BP 133/76
--- NOTE | 2021-09-10 07:08 | NUR ---
Patient discharged to home in stable condition. Written and verbal after care instructions given. Patient verbalizes understanding of instruction.
[2021-09-10 09:15] LABS: BACTERIA,URINE Few /HPF (None Seen); RBC,URINE 81-100 /HPF (0-2); SQUAMOUS EPITHELIAL CELL,UR Moderate /HPF (None Seen); WBC,URINE 0-2 /HPF (0-3)
== END 2021-09-10 07:10 | disposition home or self-care (01) ==
LOC: ER 01:18
DX: R10.9 Unspecified abdominal pain (principal); R31.9 Hematuria, unspecified; Z88.8 Allergy status to other drugs, medicaments and biological substances; Z79.1 Long term (current) use of non-steroidal anti-inflammatories (NSAID); Z79.899 Other long term (current) drug therapy
CPT/HCPCS: 36415; 74176; 80048; 80076; 81001; 84703; 85025; 96361; 96374; 96376; 99284; J2270 ×2; J7030